=== PATIENT | female | born 1975 | race Caucasian/White ===

== ENCOUNTER 2017-09-16 06:34 | Emergency (ER) | payer MEDICARE, SELFPAY ==
[2017-09-16 06:37] VITALS: BP 144/88; PULSE 89; RESP 17; TEMP 36.8; O2SAT 96; BMI 33.3
--- NOTE | 2017-09-16 06:47 | ED.VISSUMM ---
- ER Visit Summary Date of Service: 09/16/17 Chief Complaint: [] Rash between breasts History of Present Illness: The patient is a 41 F patient has had a rest for the last 30 days that is getting better with nystatin cream and powder. She did do a week of Diflucan approximately 3 weeks ago as well. Is getting much better. She is requesting more Diflucan to help her get this resolved. She does not have a family doctor locally she recently moved. Physical Examination: [] Vital signs reviewed General: Well-nourished well-developed Head: Normocephalic atraumatic Eyes: Pupils equal round and reactive to light extraocular movements intact ENT: TMs clear no hemotympanum no trauma Neck: Nontender full range of motion Cardiovascular: Regular rate rhythm no murmurs normal S1-S2 Respiratory: No distress clear to auscultation bilaterally chest nontender Abdomen: Soft nontender nondistended normal bowel sounds no masses Back: Nontender no CVA tenderness Extremities: Nontender active range of motion ?4 extremities no trauma Skin: Mild yeast rash between the breast folds slowly. No yeast under the breasts. Neuro alert oriented cranial nerves II through XII intact normal strength sensation reflexes Test Results: [] Emergency Department Course and Treatment: [] Will be given a short course of Diflucan to supplement the statin. Will follow-up as an outpatient. At this time she is a yeast infection Treatment Plan: [] Disposition: [] Impression: [] Candidiasis skin infection This note was generated with [employer] dictation software. It may contain incorrect words, spelling, and punctuation that were not noted in review of the chart prior to signing ED Disposition - Plan for ED Patient: Chief Complaint: Rash Referrals: Care Physician,No Primary [Primary Care Provider] -
--- NOTE | 2017-09-16 06:48 | ED.DEP ---
ED Disposition - Plan for ED Patient: Disposition: Home or Assisted Living Chief Complaint: Rash Instructions: ED Candidiasis Cutaneous Prescriptions: Fluconazole [Diflucan] 50 mg PO BID #14 tab Referrals: Care Physician,No Primary [Primary Care Provider] - Mike Bob [[facility]] -
[2017-09-16 06:58] VITALS: RESP 16
== END 2017-09-16 06:59 | disposition home or self-care (01) ==
PROVIDERS: Emergency Provider Emergency Medicine
DX: B37.2 Candidiasis of skin and nail (principal); J45.909 Unspecified asthma, uncomplicated; Z79.899 Other long term (current) drug therapy
CPT/HCPCS: 99282

== ENCOUNTER 2017-09-24 17:47 | Emergency (ER) | payer MEDICARE, MEDICAID, SELFPAY ==
[2017-09-24 17:48] VITALS: BP 123/66; PULSE 78; RESP 16; TEMP 36.7; O2SAT 98; BMI 33.0
--- NOTE | 2017-09-24 19:15 | RAD_ITS ---
STUDY: X-RAY CHEST REASON FOR EXAM: Female, 41 years old. Asthma TECHNIQUE: Single frontal view COMPARISON: January 31, 2009 FINDINGS: The lungs are clear and expanded. There is no demonstrated pleural abnormality. Normal size heart. Normal mediastinum and carlee. Normal visualized pulmonary arteries. Normal visualized aortic arch and descending thoracic aorta. Normal visualized thoracic spine. Normal visualized ribs, clavicles, and shoulders. There is no demonstrated abnormality of the visualized soft tissue structures of the upper abdomen. RAD/Chest 1 View (Portable) IMPRESSION: Normal x-ray examination of the chest. Electronically Signed: Geoffrey Mercer DO at 19:57 EST Tel [phone], Service support ,
--- NOTE | 2017-09-24 19:16 | ED.DEP ---
ED Disposition - Plan for ED Patient: Chief Complaint: Asthma Instructions: ED Reactive Airway Disease Prescriptions: Prednisone [Deltasone] 40 mg PO DAILY #10 tablet Nystatin Powder [Mycostatin Powder] 1 applic TOPICAL TID #1 bottle Referrals: Care Physician,No Primary [Primary Care Provider] - Meme Manning MD [COURTESY STAFF PHYSICIAN] -
[2017-09-24 19:36] VITALS: PULSE 71; RESP 18
[2017-09-24] MEDS: Albuterol 2.5 MG/3 ML VIAL.NEB. INHALATION (19:36)
[2017-09-24 20:32] VITALS: RESP 16
--- NOTE | 2017-09-24 22:11 | ED.DCSUM_ITS ---
- ER Visit Summary Date of Service: 09/24/17 Chief Complaint: Shortness of breath, wheezing History of Present Illness: The patient is a 41 F presenting with shortness of breath, wheezing. She states this has been ongoing for the past week or so. She is here requesting a prednisone prescription. She has a history of asthma. She states she does not have a physician. She has inhalers at home. Her last steroid use was approximately 1 month ago. She denies fever or cough. She is a smoker. Denies other complaints. Physical Examination: Vitals are stable. Patient is afebrile. Alert no acute distress. HEENT exam is unremarkable. Neck is supple. Lungs are wheezing bilaterally. Heart is regular rate and rhythm. Abdomen is soft nontender nondistended. Extremities are unremarkable. Skin is warm and dry. No focal neurologic deficit. Remainder of exam is unremarkable. Emergency Department Course and Treatment: Patient was given albuterol aerosol. Lungs are improved on reevaluation. Chest x-ray shows no acute process. She is given a prescription for prednisone. She is given Dr. Manning product inspection coordinator for no doc for follow-up. Advised return to ED if worsening complaints. Disposition: Discharge home Impression: Asthma exacerbation This note was generated with [employer] dictation software. It may contain incorrect words, spelling, and punctuation that were not noted in review of the chart prior to signing ED Disposition - Plan for ED Patient: Disposition: Home or Assisted Living Chief Complaint: Asthma Instructions: ED Reactive Airway Disease Prescriptions: Prednisone [Deltasone] 40 mg PO DAILY #10 tablet Nystatin Powder [Mycostatin Powder] 1 applic TOPICAL TID #1 bottle Referrals: Meme Manning MD [COURTESY STAFF PHYSICIAN] - Care Physician,No Primary [Primary Care Provider] -
== END 2017-09-24 20:32 | disposition home or self-care (01) ==
LOC: ED 19:37
PROVIDERS: Emergency Provider Emergency Medicine
DX: J45.901 Unspecified asthma with (acute) exacerbation (principal); F17.200 Nicotine dependence, unspecified, uncomplicated
CPT/HCPCS: 71045; 94640; 99283

== ENCOUNTER 2017-11-16 05:25 | Emergency (ER) | payer MEDICARE, SELFPAY ==
[2017-11-16 05:26] VITALS: BP 134/83; PULSE 57; RESP 16; TEMP 36.2; O2SAT 96; BMI 34.2
--- NOTE | 2017-11-16 05:40 | ED.DCSUM_ITS ---
- ER Visit Summary Date of Service: 11/16/17 Chief Complaint: [Dental pain] History of Present Illness: The patient is a 42 F [presents to the emergency department complaint of dental pain ?2 months. Patient states that she had increased discomfort over the last couple of days. Patient has a history of periodontal disease. Patient does not see a dentist. Patient denies any fever. Patient denies any trauma to her teeth.] Physical Examination: [HEENT-PERRLA, EOMI. Cranial nerves II through XII grossly intact. TMs clear. Mucous membranes moist. No adenopathy. Patient has mild erythema to the left upper gingiva and tenderness diffusely over the left upper teeth. No focal abscess noted. No facial cellulitis noted. No trismus on exam. Cardiovascular-regular rate and rhythm without murmur or ectopy Lungs-clear to auscultation, chest wall stable without crepitus or subcu emphysema Abdomen-normoactive bowel sounds, soft, nontender, no rebound or rigidity, no peritoneal signs. Extremities-intact ?4, normal range of motion, normal pulses, atraumatic] Test Results: [None indicated] Emergency Department Course and Treatment: [Patient was started on clindamycin and will be given a small amount of tramadol for pain. Patient advised to follow-up with the dentist.] Treatment Plan: [Follow-up with dentist and will start on clindamycin and tramadol for pain.] Disposition: [Discharged to home in stable condition.] Impression: [Dental pain] This note was generated with [employer] dictation software. It may contain incorrect words, spelling, and punctuation that were not noted in review of the chart prior to signing ED Disposition - Plan for ED Patient: Chief Complaint: Dental Referrals: Care Physician,No Primary [Primary Care Provider] -
--- NOTE | 2017-11-16 05:40 | ED.DEP ---
ED Disposition - Plan for ED Patient: Chief Complaint: Dental Instructions: ED Tooth Pain Prescriptions: traMADol [Ultram] 50 mg PO Q4H PRN PRN #20 tab PRN Reason: Pain Clindamycin HCl [Cleocin] 300 mg PO Q6H #40 cap Referrals: Care Physician,No Primary [Primary Care Provider] - Additional Instructions: see a dentist
[2017-11-16] MEDS: traMADol 50 MG Tablet PO (05:44)
[2017-11-16] MEDS: Clindamycin HCl 150 MG Capsule 300 MG PO (05:44)
== END 2017-11-16 05:51 | disposition home or self-care (01) ==
LOC: ED 05:51
PROVIDERS: Emergency Provider Emergency Medicine; Family Provider Internal Medicine; PCP Internal Medicine
DX: K08.89 Other specified disorders of teeth and supporting structures (principal); G40.909 Epilepsy, unspecified, not intractable, without status epilepticus; J45.909 Unspecified asthma, uncomplicated; Z72.0 Tobacco use; Z79.899 Other long term (current) drug therapy; Z98.51 Tubal ligation status
CPT/HCPCS: 99283

== ENCOUNTER → 2017-12-23 13:42 | Outpatient (CLI) | payer MEDICARE, SELFPAY ==
[2017-12-23 13:59] LABS: Absolute Lymphocyte Count 3.43 X10^3/ul (0.83-4.51); Absolute Neutrophil Count 1.8 X10^3/uL (2.0-7.7); Basophil# 0.04 X10^3/uL; Basophil% 0.7 % (0-1); Eosinophil# 0.27 X10^3/uL; Eosinophils% 4.6 % (0-5); Hematocrit 40.3 % (37-47); Hemoglobin 13.1 g/dl (12.0-15.0); Lymphocyte # 3.43 X10^3/ul (4.0); Lymphocyte % 58.1 % (19-41); Mean Corp Hgb Conc 32.5 g/gl (32-36); Mean Corpuscular Hgb 27.6 pg (27.0-32.0); Mean Corpuscular Volume 84.8 fL (81-99); Mean Platelet Vol. 8.8 fl (6.2-12.0); Monocyte# 0.37 X10^3/uL; Monocyte% 6.3 % (0-10); Neutrophil # 1.79 X10^3/uL (2.7-7.7); Neutrophil % 30.3 % (47-70); Platelet Count 258 K/mm3 (150-450); RBC Distribution Width CV 13.2 % (11.6-14.6); RBC Distribution Width SD 40.7 fl (35.1-43.9); Red Blood Count 4.75 M/mm3 (4.2-5.4); White Blood Count 5.9 K/mm3 (4.4-11.0)
[2017-12-23 14:00] LABS: POSITIVE COUNT NO; POSITIVE DIFFERENTIAL NO; POSITIVE MORPHOLOGY NO
[2017-12-23 15:07] LABS: T4 Free Direct 0.79 ng/dL (0.76-1.46)
[2017-12-24 13:14] LABS: Vitamin B12 891 pg/mL (211-911); Vitamin D,25 Hydroxy 25.4 ng/mL (29.95-100.01)
== END ==
PROVIDERS: Family Provider Internal Medicine; PCP Internal Medicine; Visit Provider Nurse Practitioner Family
DX: R53.83 Other fatigue (principal); K06.9 Disorder of gingiva and edentulous alveolar ridge, unspecified; M79.7 Fibromyalgia; E55.9 Vitamin D deficiency, unspecified
CPT/HCPCS: 36415; 82306; 82607; 82746; 84439; 84443; 85025

== ENCOUNTER → 2018-03-08 11:54 | Outpatient (CLI) | payer MEDICARE, SELFPAY ==
--- NOTE | 2018-03-08 11:56 | US_ITS ---
STUDY: SUPERFICIAL ULTRASOUND - LEFT LOWER ABDOMINAL WALL REASON FOR EXAM: Female, 42 years old. Palpable lump TECHNIQUE: A superficial ultrasound was performed with real-time and static dale-scale imaging. COMPARISON: None. FINDINGS: Echogenic oval focus within the superficial subcutaneous fat of the abdominal wall at the region of interest. This focus measures approximately 1.06 x 0.96 x 1.3 cm and is most consistent with lipoma. US/Other Unlisted US Procedure IMPRESSION: Lump at the region of interest is most consistent with lipoma. Electronically Signed: Joni Perez, at 13:31 EDT Tel , Service support ,
== END ==
PROVIDERS: Family Provider Internal Medicine; PCP Internal Medicine; Visit Provider Nurse Practitioner Family
DX: R19.09 Other intra-abdominal and pelvic swelling, mass and lump (principal)
CPT/HCPCS: 76999

== ENCOUNTER → 2018-03-12 17:47 | Outpatient (CLI) | payer MEDICARE, SELFPAY ==
--- NOTE | 2018-03-12 | LIP_PTH ---
PATIENT: ALEJANDRA VELARDE LOC: [facility] U#:[id number] AGE/SX: 49/F ROOM: RE03/12/[address]: Dr. Edi Mi MD : 1975 BED: DIS: SPEC #: [id number] RECD: 03/13/18 17:15 STATUS: HAILE GUDELIA #: [id number] JEANETH: 03/12/18 00:[address]: Edi Mi DEPT: SURGICAL PATHOLOGY RECD BY: Dasha Boyd ENTERED: 03/13/18 09:53 SP TYPE: LIPOMA OTHR DR: Dr. Lindsey Ho MD Tissues: Soft tissues, NOS Procedures: Surgery Specimen Level III HEADER OPERATION: Excision of abdominal lipoma PRE-OP DIAGNOSIS: Abdominal lipoma TISSUE SUBMITTED: Lipomas of abdomen MICROSCOPIC DIAGNOSIS Abdominal cyst: Mature adipose tissue, consistent with lipoma with focal fat necrosis. SJ:christine 03/14/18 MICROSCOPIC DESCRIPTION Slides are reviewed. GROSS DESCRIPTION Received in fixative is one container labeled with the patient's name and designated abdominal cyst. The specimen consists of an ovoid fragment of yellow fatty tissue measuring 1.5 x 1 x 1 cm. The specimen is bisected and totally submitted in one cassette. / AM:rg 03/13/18 TC:1 CPT: 18155
== END ==
PROVIDERS: Family Provider Internal Medicine; PCP Internal Medicine; Visit Provider Surgery
DX: D17.1 Benign lipomatous neoplasm of skin and subcutaneous tissue of trunk (principal)
CPT/HCPCS: 88304

== ENCOUNTER 2018-10-19 06:03 | Emergency (ER) | payer MEDICARE, SELFPAY ==
[2018-10-16 14:28] VITALS: BMI 36.8
[2018-10-19 06:03] VITALS: BP 159/98; PULSE 60; RESP 18; TEMP 36.9; O2SAT 95; BMI 37.3
[2018-10-19 06:10] VITALS: O2SAT 94
[2018-10-19 06:18] VITALS: BP 160/88; PULSE 87; RESP 18; O2SAT 96
--- NOTE | 2018-10-19 06:19 | ED.VISSUMM ---
- ER Visit Summary Date of Service: 10/19/18 Chief Complaint: [Cough and shortness of breath] History of Present Illness: The patient is a 42 F [presents the emergency department with complaint of shortness of breath started about a week ago. Patient states that her asthma is flared up and she saw her primary care nurse practitioner who treated her with prednisone 40 mg for a couple of days she believes 4 days and just has not gotten all the way better. She did feel somewhat improved but normally she gets treated with a higher dose for a longer period of time. She had a little bit of a mild sore throat last week. She has had a minimal cough. She has not had any fever. Cough is nonproductive. She denies fever. She denies recent travel or surgery. She denies chest pain.] Physical Examination: [HEENT-PERRLA, EOMI. Cranial nerves II through XII grossly intact. TMs clear. Mucous membranes moist. No adenopathy. Cardiovascular-regular rate and rhythm without murmur or ectopy Lungs-clear to auscultation, chest wall stable without crepitus or subcu emphysema. Patient has a faint expiratory wheeze at end of expiration noted. No accessory muscle use or retractions. Abdomen-normoactive bowel sounds, soft, nontender, no rebound or rigidity, no peritoneal signs. Extremities-intact ?4, normal range of motion, normal pulses, atraumatic] Test Results: [I discussed possibly obtaining a chest x-ray however patient refused that she states that she is not feeling ill and does not believe she is sick and does not want to have a chest x-ray.] Emergency Department Course and Treatment: [Patient was given prednisone 60 mg p.o.] Treatment Plan: [Patient will be given a prescription for prednisone for 5 more days.] Disposition: [Discharged home in stable condition. Patient advised to return if increasing shortness of breath or condition should worsen anyway.] Impression: [Asthma exacerbation] This note was generated with [employer] dictation software. It may contain incorrect words, spelling, and punctuation that were not noted in review of the chart prior to signing ED Disposition - Plan for ED Patient: Referrals: Lindsey Ho MD [Primary Care Provider] -
--- NOTE | 2018-10-19 06:21 | ED.DEP ---
ED Disposition - Plan for ED Patient: Instructions: ED Reactive Airway Disease Prescriptions: Prednisone [Deltasone] 60 mg PO DAILY #15 tab Referrals: Lindsey Ho MD [Primary Care Provider] - 3-5 Days
[2018-10-19] MEDS: predniSONE 20 MG Tablet 60 MG PO (06:32)
== END 2018-10-19 06:33 | disposition home or self-care (01) ==
LOC: ED 06:32
PROVIDERS: Emergency Provider Emergency Medicine; Family Provider Internal Medicine; PCP Internal Medicine
DX: J45.901 Unspecified asthma with (acute) exacerbation (principal); I10 Essential (primary) hypertension; F32.9 Major depressive disorder, single episode, unspecified; F41.9 Anxiety disorder, unspecified; Z79.1 Long term (current) use of non-steroidal anti-inflammatories (NSAID); Z79.52 Long term (current) use of systemic steroids; Z79.899 Other long term (current) drug therapy; Z86.19 Personal history of other infectious and parasitic diseases; Z87.891 Personal history of nicotine dependence
CPT/HCPCS: 99282

== ENCOUNTER → 2018-11-12 15:48 | Outpatient (CLI) | payer MEDICARE, SELFPAY ==
[2018-10-19 06:03] VITALS: BMI 37.3
[2018-11-12 19:31] LABS: Absolute Lymphocyte Count 2.68 X10^3/ul (0.83-4.51); Absolute Neutrophil Count 0.8 X10^3/uL (2.0-7.7); Basophil# 0.04 X10^3/uL; Basophil% 0.9 % (0-1); Eosinophil# 0.41 X10^3/uL; Eosinophils% 9.1 % (0-5); Hematocrit 41.3 % (37-47); Hemoglobin 13.7 g/dl (12.0-15.0); Lymphocyte # 2.68 X10^3/ul (4.0); Lymphocyte % 59.3 % (19-41); Mean Corp Hgb Conc 33.2 g/gl (32-36); Mean Corpuscular Volume 87.5 fL (81-99); Mean Platelet Vol. 11.5 fl (6.2-12.0); Monocyte# 0.55 X10^3/uL; Monocyte% 12.2 % (0-10); Neutrophil # 0.83 X10^3/uL (2.7-7.7); Neutrophil % 18.3 % (47-70); Platelet Count 271 K/mm3 (150-450); RBC Distribution Width CV 13.1 % (11.6-14.6); RBC Distribution Width SD 41.2 fl (35.1-43.9); Red Blood Count 4.72 M/mm3 (4.2-5.4); White Blood Count 4.5 K/mm3 (4.4-11.0)
[2018-11-12 19:35] LABS: Differential Indicated SCAN CRITERIA MET; POSITIVE COUNT NO; POSITIVE DIFFERENTIAL YES; POSITIVE MORPHOLOGY NO
[2018-11-12 20:26] LABS: Platelet Estimate ADEQUATE (ADEQ); Red Cell Morphology NORM C+C NORMAL (NORM C&C)
== END ==
PROVIDERS: Family Provider Internal Medicine; PCP Internal Medicine; Referring Provider Nurse Practitioner Family; Visit Provider Nurse Practitioner Family
DX: J45.909 Unspecified asthma, uncomplicated (principal)
CPT/HCPCS: 36415; 85025

== ENCOUNTER → 2019-05-09 15:59 | Outpatient (CLI) | payer MEDICARE, SELFPAY ==
[2019-05-09 14:05] VITALS: BMI 34.4
[2019-05-09 16:40] LABS: White Blood Cells 0 SEEN /hpf (0-5)
[2019-05-09 17:08] LABS: Color, Urine Yellow (Yellow); Glucose, Dipstick Normal (Normal); Ketone-Dipstick Negative (Negative); Leukocyte Esterase-Dipstick Negative /ul (Negative); Nitrite-Dipstick Negative (Negative); Occult Blood-Urine Negative /ul (Negative); Protein-Dipstick 15 mg/dl (Negative); Specific Gravity, Urine 1.015 (1.002-1.030); Urine Bilirubin Dipstick Negative (Negative); Urine Clarity Clear (Clear); Urine Urobilinogen 4 mg/dl (Normal); Urine pH 6.5 (5.0 - 8.0)
[2019-05-09 17:35] LABS: Bacteria 2+ /hpf (None Seen); Mucous, Urine 1+ /hpf (<or=2+); Red Blood Cells-Urine 0-5 SEEN /hpf (0-5); Squamous Epithelial Cells - UA 0-5 SEEN /hpf (5-10)
== END ==
PROVIDERS: Family Provider Internal Medicine; PCP Internal Medicine; Referring Provider Nurse Practitioner Family; Visit Provider Nurse Practitioner Family
DX: R30.0 Dysuria (principal)
CPT/HCPCS: 81001; 87086

== ENCOUNTER 2019-11-17 09:52 | Emergency (ER) | payer MEDICARE, MEDICAID, SELFPAY ==
[2019-11-03 13:53] VITALS: BMI 34.4
[2019-11-17 09:53] VITALS: BP 143/79; PULSE 70; RESP 22; TEMP 36.9; O2SAT 93; BMI 33.0
--- NOTE | 2019-11-17 10:06 | RAD_ITS ---
STUDY: X-RAY CHEST REASON FOR EXAM: Female, 44 years old. HX ASTHMA TECHNIQUE: Single AP portable view of the chest. COMPARISON: Comparison is made with prior examination dated September 24, 2017. FINDINGS: There now is evidence of bilateral patchy infiltrates worse in the right lung base. Blunting of the left costophrenic angle. Normal size heart. Normal mediastinum and carlee. Normal visualized pulmonary arteries. Normal visualized aortic arch and descending thoracic aorta. There are degenerative changes of the visualized thoracic spine. Normal visualized ribs, clavicles, and shoulders. There is no demonstrated abnormality of the visualized soft tissue structures of the upper abdomen. RAD/Chest 1 View (Portable) IMPRESSION: Patchy bilateral pulmonary infiltrates worse in the right hemithorax. Follow-up is recommended. Electronically Signed: Morgan Kim, at 10:35 EDT , Service support ,
--- NOTE | 2019-11-17 10:07 | ED.DCSUM_ITS ---
History of Present Illness Chief Complaint: Asthma Informant: Patient Onset: Today Narrative: Patient states that 3 weeks ago she mixed some chemicals while cleaning her toilet. Since then she states that she has been short of breath. She has been taking prednisone she tells me every day for 3 weeks. She states that she is extremely anxious. She states she took 7 albuterol treatments this morning. She has visited with her doctor with a virtual appointment and I reviewed that note. She states nobody will help her. See that she received Ativan on November 02 2 tablets and November 05 2 tablets. Patient's previous mental health and social history was reviewed. Past Medical History - Allergies and Home Meds Allergies/Adverse Reactions: Allergies ipratropium bromide [From Atrovent] Allergy (Verified 11/17/19 09:53) Unknown shellfish derived Allergy (Verified 11/17/19 09:53) Unknown Primary Care Physician: Lindsey Ho MD [Primary Care Provider] - Smoking Status: Former smoker Review of Systems General: Denies: Chills, Fever, Sweats Eyes: Denies: Visual changes - bilaterally, Diplopia ENT: Denies: Rhinorrhea, Sore throat Cardiovascular: Denies: Chest pain, Palpitations Respiratory: Reports: Dyspnea. Denies: Cough, Sputum, Dyspnea on exertion Gastrointestinal: Denies: Abdominal pain, Nausea, Vomiting, Diarrhea, Melena, Hematochezia Genitourinary: Denies: Dysuria, Hematuria, Frequency Musculoskeletal: Denies: Back pain, Extremity Pain Skin: Denies: Rash, Wounds Neurological: Denies: Headache, Weakness, Numbness Psych: Reports: Anxiety. Denies: Suicidal thoughts, Suicidal ideations Physical Exam Vital Signs/Narrative: Vital Signs Temp Pulse Resp BP Pulse Ox 11/17/19 09:53 98.4 F 70 22 H 143/79 H 93 Inital Vital Signs reviewed: Yes General: Well nourished, Well developed, No Acute Distress Head: Normocephalic, Atraumatic Eyes: Perrl, EOMI ENT: Moist mucous membranes, No rhinorrhea Neck: Supple, Nontender Cardiovascular: Regular rate, Regular rhythm, No murmurs Respiratory: No distress, CTA bilaterally, Chest nontender, - - Patient is able to speak in full sentences. She has good aeration. Her expiratory wheezes resolved when I have her breathe with pursed lips. Abdomen: Soft, Nontender, Nondistended, Normal bowel sounds Back: Nontender, Normal Inspection Extremities: Nontender, No edema Skin: Normal color, No rash Neurological: Alert, Oriented x3, Cranial nerves II-XII grossly intact, Normal Strength, Normal Sensation Psychological: - - And is extremely anxious appearing. She is tearful. She has pressured speech. No suicidal or homicidal ideation. Diagnostic/Tx/Re-eval - Medical Decision Making Patient received a milligram of Ativan p.o. Her chest x-ray is concerning for bilateral infiltrates and given the current COVID 19 endemic is the most likely cause. The patient was updated. ED Disposition - Plan for ED Patient: Disposition: Home or Assisted Living Diagnosis: Bilateral pneumonia, Suspected COVID-19 virus infection Prescriptions: Lorazepam [Ativan] 0.5 mg PO TID #12 tablet Transmission Status: Sent to [facility] Amox/Clavulanate Tablet [Augmentin Tablet] 875 mg PO Q12H #20 tab Transmission Status: Pending to [facility] Azithromycin 500 mg PO DAILY 5 Days #5 tab Transmission Status: Pending to [facility] Albuterol Aerosols [Ventolin Aerosols] 2.5 mg INHALATION Q4H PRN #25 vial Transmission Status: Pending to [facility] Referrals: Lindsey Ho MD [Primary Care Provider] -
[2019-11-17] MEDS: LORazepam 1 MG Tablet PO (10:14)
[2019-11-17 10:20] VITALS: BP 143/79; PULSE 70; RESP 22; TEMP 36.9; O2SAT 93; O2SAT 98
[2019-11-17 11:05] LABS: Absolute Lymphocyte Count 2.93 X10^3/uL (0.83-4.51); Absolute Neutrophil Count 6.8 X10^3/uL (2.0-7.7); Basophil# 0.09 X10^3/uL; Basophil% 0.7 % (0-1); Eosinophils% 13.1 % (0-5); Hematocrit 38.4 % (37-47); Hemoglobin 12.5 g/dL (12.0-15.0); Lymphocyte # 2.93 X10^3/ul (4.0); Mean Corp Hgb Conc 32.6 g/dL (32-36); Mean Corpuscular Hgb 28.5 pg (27.0-32.0); Mean Corpuscular Volume 87.7 fL (81-99); Mean Platelet Vol. 8.8 fl (6.2-12.0); Monocyte# 0.72 X10^3/uL; Monocyte% 5.9 % (0-10); NRBC Flagged by Analyzer 0 % (0-5); Neutrophil % 55.9 % (47-70); Platelet Count 404 K/mm3 (150-450); RBC Distribution Width CV 13.6 % (11.6-14.6); RBC Distribution Width SD 43.7 fl (35.1-43.9); Red Blood Count 4.38 M/mm3 (4.2-5.4); White Blood Count 12.2 K/mm3 (4.4-11.0)
[2019-11-17 11:19] LABS: ALB/GLOB Ratio 0.7 RATIO (0.9-2.4); AST(SGOT) 44 U/L (15-37); Alanine Aminotransfer ALT/SGPT 34 U/L (13-56); Albumin, Serum 2.9 g/dL (3.2-5.0); Alkaline Phosphatase 137 U/L (45-117); Anion Gap 5 (5-15); BUN 6 mg/dL (7-18); BUN/Creat Ratio 8.3 RATIO (10-20); Calcium,Total 8.7 mg/dL (8.5-10.1); Chloride 104 mmol/L (98-107); Creatinine, Serum 0.72 mg/dL (0.55-1.02); EST Glomerular Filtration Rate 94 mL/min (>60); Est Glom Filt Rate - Afr Amer 113 mL/min (>60); Estimated Creatinine Clearance 91.59 ml/min; Glucose 87 mg/dL (74-106); Potassium 3.2 mmol/L (3.5-5.1); Protein, Total 6.9 g/dL (6.4-8.2); Sodium Level 142 mmol/L (136-145)
[2019-11-17 11:46] VITALS: BP 142/78; PULSE 76; RESP 22; O2SAT 98
--- NOTE | 2019-11-17 11:46 | ED.RN ---
THIS NURSE REVIEWED D/C INSTRUCTIONS WITH PT. PT VERBALIZED UNDERSTANDING OF INSTRUCTIONS. IV D/C. IV CATHETER INTACT. PT TOLERATED WELL. PT DENIES FURTHER NEEDS OR QUESTIONS AT THIS TIME
== END 2019-11-17 12:07 | disposition home or self-care (01) ==
PROVIDERS: Emergency Provider Emergency Medicine; PCP Internal Medicine
DX: J18.9 Pneumonia, unspecified organism (principal); J45.909 Unspecified asthma, uncomplicated; Z79.899 Other long term (current) drug therapy; Z87.891 Personal history of nicotine dependence
CPT/HCPCS: 71045; 80053; 85025; 87635; 99283; A4216; U0004

== ENCOUNTER 2020-03-04 08:54 | Emergency (ER) | payer MEDICARE, SELFPAY ==
[2019-11-19 12:54] VITALS: BMI 33.0
[2020-03-04] VITALS (7 sets, daily range): BP systolic 123–171; BP diastolic 78–105; PULSE 40–59; RESP 16–24; TEMP 36–36.7; O2SAT 96–99; BMI 30.7
--- NOTE | 2020-03-04 09:06 | EKG12_ITS ---
Test Reason : Blood Pressure : / mmHG Vent. Rate : 038 BPM Atrial Rate : 038 BPM P-R Int : 174 ms QRS Dur : 094 ms QT Int : 570 ms P-R-T Axes : 031 067 067 degrees QTc Int : 453 ms Marked sinus bradycardia Abnormal ECG Confirmed by ALEK ALATORRE, MISTI ([id number]), medical transcription editor RUY HARRY ([id number]) on 03/08/2020 9:33:33 AM Referred By: MITCHELL/MARGARET Confirmed By:JU GASTON MD
--- NOTE | 2020-03-04 09:06 | CT_ITS ---
STUDY: CT BRAIN WITHOUT CONTRAST REASON FOR EXAM: Female, 44 years old. CHANGE IN MENTAL STATUS, DRUG ABUSE-WITHDRAWAL, HEP C, MOOD DISORDER, ,NEG COVID RADIATION DOSAGE (If Supplied By Facility): CTDIvol = ( 44.99 ) mGy, DLP = ( 1558.47 ) mGycm TECHNIQUE: Transaxial CT imaging of the brain was performed without administration of intravenous contrast material. Individualized dose optimization techniques were used for this CT. COMPARISON: No relevant priors. FINDINGS: Normal soft tissue structures. Normal calvarium. Normal size ventricles and extra-axial spaces for the patient''s age. Normal white matter tracts of the cerebral hemispheres. Normal basal ganglia and thalami. Normal brainstem. Normal cerebellum. There is no intracranial hemorrhage. There are no findings of an acute ischemic infarction. Normal visualized paranasal sinuses. CT/Brain/Head without Contrast IMPRESSION: Normal unenhanced CT scan of the brain. Electronically Signed: Morgan Kim, at 10:03 EDT , Service support ,
--- NOTE | 2020-03-04 09:07 | ED.DCSUM_ITS ---
History of Present Illness Chief Complaint: Anxiety Informant: Patient, Family Onset: Days Context: Gradual Onset Timing: Intermittent Current Severity: Moderate Maximum Severity: Severe Narrative: Patient is a 44-year-old female with medical history significant for mood disorder and personality disorder that presents to the emergency department for auditory hallucinations. Patient states that about 3 days ago, she took what she thought was Xanax. She states that she does get it from a friend and she was trying to deal with her anxiety. She states shortly after taking it, she began to feel nauseated. For the past 2 nights, she has been having auditory hallucinations. She states that she felt like there is been people outside of her house being on her windows. She states she is never had hallucinations before. She denies being suicidal or homicidal. She states she just generally feels unwell. She was recently started on Seroquel about 2 weeks ago. She is also on Suboxone. Prior similar symptoms: No Recent Illness/Hospitalization: No Past Medical History - Allergies and Home Meds Allergies/Adverse Reactions: Allergies ipratropium bromide [From Atrovent] Allergy (Verified 11/17/19 09:53) Unknown shellfish derived Allergy (Verified 11/17/19 09:53) Unknown Primary Care Physician: Lindsey Ho MD [STAFF PHYSICIAN] - Prior records reviewed: Yes Past Medical History: - - Personality disorder, mood disorder, COPD Surgical History: noncontributory Smoking Status: Former smoker Review of Systems General: Reports: Malaise. Denies: Chills, Fever, Sweats Eyes: Denies: Visual changes - bilaterally, Diplopia ENT: Denies: Rhinorrhea, Sore throat Cardiovascular: Denies: Chest pain, Palpitations Respiratory: Denies: Dyspnea, Cough, Dyspnea on exertion Gastrointestinal: Reports: Nausea, Vomiting. Denies: Abdominal pain, Diarrhea, Melena, Hematochezia Genitourinary: Denies: Dysuria, Hematuria, Frequency Musculoskeletal: Denies: Back pain, Extremity Pain Skin: Denies: Rash, Wounds Neurological: Denies: Headache, Weakness, Numbness Psych: Reports: Anxiety Physical Exam Vital Signs/Narrative: Vital Signs Temp Pulse Resp BP Pulse Ox 03/04/20 08:55 96.8 F L 40 L 16 158/95 H 96 Inital Vital Signs reviewed: Yes General: Well nourished, Well developed, No Acute Distress Head: Normocephalic, Atraumatic Eyes: Perrl, EOMI ENT: Moist mucous membranes, No rhinorrhea Neck: Supple, Nontender Cardiovascular: Regular rate, Regular rhythm, No murmurs Respiratory: No distress, CTA bilaterally, Chest nontender Abdomen: Soft, Nontender, Nondistended, Normal bowel sounds Back: Nontender, Normal Inspection Extremities: Nontender, No edema Skin: Normal color, No rash Neurological: Alert, Oriented x3, Cranial nerves II-XII grossly intact, Normal Strength, Normal Sensation Psychological: Normal affect, Normal Mood Diagnostic/Tx/Re-eval Clinical Impression(s) from Imaging Studies Brain CT 03/04/20 09:06 IMPRESSION: Normal unenhanced CT scan of the brain. Electronically Signed: Morgan Kim, at 10:03 EDT , Service support , Abnormal Lab Results 03/04/20 03/04/20 03/04/20 09:30 09:30 09:30 WBC 9.7 RBC 4.87 Hgb 13.5 Hct 40.9 MCV 84.0 MCH 27.7 MCHC 33.0 RDW Std Deviation 43.1 RDW Coeff of Renetta 14.1 Plt Count 309 MPV 9.3 Immature Gran % (Auto) 0.300 Neut % (Auto) 68.1 Lymph % (Auto) 27.3 [place] % (Auto) 3.2 Eos % (Auto) 0.4 Baso % (Auto) 0.7 Absolute Neuts (auto) 6.6 Absolute Lymphs (auto) 2.65 Nucleated RBC % 0 Sodium 136 Potassium 4.3 Chloride 104 Carbon Dioxide 28.0 Anion Gap 4 L BUN 11 Creatinine 0.86 Estim Creat Clear Calc 76.68 Est GFR (MDRD) Af Amer 93 Est GFR (MDRD) Non-Af 77 BUN/Creatinine Ratio 12.7 Glucose 153 H Calcium 8.9 Total Bilirubin 0.50 AST 74 H ALT 95 H Alkaline Phosphatase 147 H Total Protein 8.2 Albumin 3.6 Globulin 4.6 H Albumin/Globulin Ratio 0.8 L Serum , Qual Urine Color Urine Clarity Urine pH Ur Specific [place] Urine Protein Urine Glucose (UA) Urine Ketones Urine Occult Blood Urine Nitrite Urine Bilirubin Urine Urobilinogen Ur Leukocyte Esterase Urine RBC Urine WBC Ur Squamous Epith Cells Urine Bacteria Urine Mucus Urine Opiates Screen Urine Methadone Screen Ur Barbiturates Screen Ur Phencyclidine Scrn Ur Amphetamines Screen U Methamphetamin-MDMA U Benzodiazepines Scrn Urine Cocaine Screen U Cannabinoids Screen Ur Drug Screen Comment Ethyl Alcohol < 3.0 03/04/20 03/04/20 03/04/20 09:30 11:48 11:48 WBC RBC Hgb Hct MCV MCH MCHC RDW Std Deviation RDW Coeff of Renetta Plt Count MPV Immature Gran % (Auto) Neut % (Auto) Lymph % (Auto) [place] % (Auto) Eos % (Auto) Baso % (Auto) Absolute Neuts (auto) Absolute Lymphs (auto) Nucleated RBC % Sodium Potassium Chloride Carbon Dioxide Anion Gap BUN Creatinine Estim Creat Clear Calc Est GFR (MDRD) Af Amer Est GFR (MDRD) Non-Af BUN/Creatinine Ratio Glucose Calcium Total Bilirubin AST ALT Alkaline Phosphatase Total Protein Albumin Globulin Albumin/Globulin Ratio Serum , Qual NEGATIVE Urine Color Yellow Urine Clarity Sl. Cloudy Urine pH 7.0 Ur Specific [place] 1.010 Urine Protein Negative Urine Glucose (UA) Normal Urine Ketones Negative Urine Occult Blood Negative Urine Nitrite Negative Urine Bilirubin Negative Urine Urobilinogen Normal Ur Leukocyte Esterase Negative Urine RBC 0 SEEN Urine WBC 0 SEEN Ur Squamous Epith Cells 0-5 SEEN Urine Bacteria 0 SEEN Urine Mucus 0 SEEN Urine Opiates Screen NEGATIVE Urine Methadone Screen NEGATIVE Ur Barbiturates Screen NEGATIVE Ur Phencyclidine Scrn NEGATIVE Ur Amphetamines Screen NEGATIVE U Methamphetamin-MDMA NEGATIVE U Benzodiazepines Scrn NEGATIVE Urine Cocaine Screen NEGATIVE U Cannabinoids Screen POSITIVE H Ur Drug Screen Comment Ethyl Alcohol - Rhythm Strip Rhythm Strip: Sinus Rhythm Rate: 50 Ectopy: None - EKG Initial EKG Interpretation: Sinus Bradycardia Prior: Unchanged - Medical Decision Making The patient presents with auditory and visual hallucinations. She does have underlying history of psychiatric disease. She was noted to be bradycardic by triage, but was not hypotensive. EKG was obtained. It showed sinus bradycardia with normal axis and intervals. Patient was recently started on propanolol and Seroquel. I do feel this is likely the cause of her bradycardia. She is totally asymptomatic from a cardiac standpoint. She is not hypotensive. I did obtain broad metabolic work-up given her hallucinations. Head CT was obtained was unremarkable. Screening labs are also relatively unremarkable. Her tox is positive for THC, but no opioids or methamphetamines. The patient is continually internally stimulated with active hallucinations. She is given Geodon. The patient was evaluated by social work. The plan will be to have the patient hospitalized with inpatient psychiatry. At this point, she is medically cleared for inpatient hospitalization. Impression 1. Acute psychosis ED Disposition - Plan for ED Patient: Referrals: Lindsey Ho MD [STAFF PHYSICIAN] -
[2020-03-04 09:45] LABS: Absolute Lymphocyte Count 2.65 X10^3/uL (0.83-4.51); Absolute Neutrophil Count 6.6 X10^3/uL (2.0-7.7); Basophil# 0.07 X10^3/uL; Basophil% 0.7 % (0-1); Eosinophil# 0.04 X10^3/uL; Eosinophils% 0.4 % (0-5); Hematocrit 40.9 % (37-47); Hemoglobin 13.5 g/dL (12.0-15.0); Lymphocyte # 2.65 X10^3/ul (4.0); Lymphocyte % 27.3 % (19-41); Mean Corpuscular Hgb 27.7 pg (27.0-32.0); Mean Platelet Vol. 9.3 fl (6.2-12.0); Monocyte# 0.31 X10^3/uL; Monocyte% 3.2 % (0-10); NRBC Flagged by Analyzer 0 % (0-5); Neutrophil # 6.59 X10^3/uL (2.7-7.7); Neutrophil % 68.1 % (47-70); Platelet Count 309 K/mm3 (150-450); RBC Distribution Width CV 14.1 % (11.6-14.6); RBC Distribution Width SD 43.1 fl (35.1-43.9); Red Blood Count 4.87 M/mm3 (4.2-5.4); White Blood Count 9.7 K/mm3 (4.4-11.0)
[2020-03-04 09:52] LABS: Alcohol, Blood (Medical)-Serum < 3.0 mg/dL
[2020-03-04 09:53] LABS: ALB/GLOB Ratio 0.8 RATIO (0.9-2.4); AST(SGOT) 74 U/L (15-37); Alanine Aminotransfer ALT/SGPT 95 U/L (13-56); Albumin, Serum 3.6 g/dL (3.2-5.0); Alkaline Phosphatase 147 U/L (45-117); Anion Gap 4 (5-15); BUN 11 mg/dL (7-18); BUN/Creat Ratio 12.7 RATIO (10-20); Calcium,Total 8.9 mg/dL (8.5-10.1); Chloride 104 mmol/L (98-107); Creatinine, Serum 0.86 mg/dL (0.55-1.02); EST Glomerular Filtration Rate 77 mL/min (>60); Est Glom Filt Rate - Afr Amer 93 mL/min (>60); Estimated Creatinine Clearance 76.68 ml/min; Globulin 4.6 g/dL (2.2-4.2); Glucose 153 mg/dL (74-106); Potassium 4.3 mmol/L (3.5-5.1); Protein, Total 8.2 g/dL (6.4-8.2); Sodium Level 136 mmol/L (136-145)
[2020-03-04] MEDS: 0.9% Normal Saline 1,000 ML 999 ML IV (10:13)
[2020-03-04 10:19] LABS: Internal QC Validated? YES +Cl - CLEAR BKGD; Pregnancy, Serum, hCG Quali. NEGATIVE Negative
[2020-03-04] MEDS: proMETHazine 25 MG/ML Syringe 6.25 MG IV (10:22)
--- NOTE | 2020-03-04 10:54 | CM.ED ---
Social Work Consult: Mental Health Informant: Dr. Sosa Chief Complaint: Patient states she keeps yelling at me, don't you hear her. Patient states that neighbor number 1 has been yelling at patient since yesterday. Marital/Social History: Single. Living Situation: Patient initially states I can't tell you that, they will try to kill me. Patient later refers to patient boyfriend staying with patient. This clinical social worker attempted to clarify if patient boyfriend lives with patient and patient states no but patient mother shakes head yes and later states that patient does live with patient boyfriend, Peter Storm. Support/Resources: Active in counseling services in [place]. Patient is not sure of counseling agency name. Patient states to see a doctor and a counselor. Patient identifies patient mother, Charley as a support. Charley can be reached at: [phone]. History: None Education/Employment History: Disability since the age of 21 due to Asthma. Patient denies any issues with comprehension or understanding on a regular basis but states to currently be foggy. Mental Health Treatment/History: Mood disorder, Personality Disorder. Patient states to be prescribed Seroquel and Celexa and to be compliant with medications. Patient states history of inpatient psychiatric placement years ago. Patient believes to have been in [facility]. Triggers/Stressors: her yelling at me. Coping Skills: Playing with kitten, Gardening. Abuse Issues: None. Substance Abuse hx: Reports history of substance abuse but to have been on Suboxone for the past 6 years. Patient states to have been using Xanax Bars for a few weeks now. Patient states when patient was using to have abuse pain medication. Risk to Self/Others: Patient denies active suicidal thoughts but then states I might be. Patient states to not be sure what patient is thinking. Patient states that she tells me to kill myself. Patient states she said she would shoot me. Patient denies any thoughts/plans to harm others. Patient denies any self-harm. Patient states history of suicide attempts years ago. Mental Status Exam: A&Ox3 Appearance/General Behavior: Disheveled. Mood/Affect: Bizarre. Elevated. Anxious. Communication Pattern: Responds to questions. Incoherent at times. Thought Process: Flight of ideas. Patient denies visual or auditory hallucinations but patient mother states that patient is hallucinating. Patient states you don't hear her and referring to someone that is not in the room. Patient states that she says, I want pills, I want my money. Patient later acknowledging that patient is hallucinating. Patient state I need help. Judgement: Poor. Assessment: Met with patient and patient motherCharley in room. Introduced self and clinical social worker role. Patient agreeable to speaking with this clinical social worker. Patient wanting patient mother to stay in the room during assessment. Patient with flight of ideas and difficult to follow at times. Patient with bizarre statements such as Clean the toilet out, not sure what I should mix and then would laugh. Patient cooperative and pleasant to speak to but disorganized in conversation pattern. Patient states that men were trying to get in and that hospital staff stopped them. This clinical social worker confirming with hospital staff that there was no men trying to get in to see patient. Patient states this girl is my friend. Patient states that patient boyfriend has been concerned about patient and things I am crazy. Patient states maybe I am. Patient states that the women has been yelling and screaming at patient since yesterday and patient has not been able to sleeping. Patient states to this clinical social worker help please. Active support and listening provided. Collaborating with Dr. Sosa. Recommending inpatient psychiatric placement for stabilization. PLAN: Facilitate placement. ALFREDO Young
[2020-03-04 12:02] LABS: Bacteria 0 SEEN /hpf (None Seen); Mucous, Urine 0 SEEN /hpf (<or=2+); Red Blood Cells-Urine 0 SEEN /hpf (0-5); White Blood Cells 0 SEEN /hpf (0-5)
[2020-03-04 12:12] LABS: Color, Urine Yellow (Yellow); Glucose, Dipstick Normal (Normal); Ketone-Dipstick Negative (Negative); Leukocyte Esterase-Dipstick Negative /ul (Negative); Nitrite-Dipstick Negative (Negative); Occult Blood-Urine Negative /ul (Negative); Protein-Dipstick Negative (Negative); Urine Bilirubin Dipstick Negative (Negative); Urine Clarity Sl. Cloudy (Clear); Urine Urobilinogen Normal (Normal)
[2020-03-04 12:21] LABS: Squamous Epithelial Cells - UA 0-5 SEEN /hpf (5-10)
[2020-03-04 12:25] LABS: Amphetamine Urine VISTA NEGATIVE (<1000 ng/mL); Barbiturate Urine VISTA NEGATIVE (< 200 ng/mL); Benzodiazepine Urine VISTA NEGATIVE (< 200 ng/mL); Cocaine Urine VISTA NEGATIVE (< 300 ng/mL); Ecstacy Urine VISTA NEGATIVE (< 500 ng/mL); Methadone Urine VISTA NEGATIVE (< 300 ng/mL); PCP Urine VISTA NEGATIVE (< 25 ng/mL); THC Urine VISTA POSITIVE (< 50 ng/mL); Vista UDS pH Range 7
--- NOTE | 2020-03-04 13:00 | CM.ED ---
Social Work Telephone call to [facility]. Referral placed. Clinical information faxed. Pending review. Chaim Devi MSW, ALFREDO
[2020-03-04] MEDS: LORazepam 2 MG/ML Syringe IM ×2 (13:08→19:45)
--- NOTE | 2020-03-04 15:35 | CM.ED ---
Social Work Telephone call from [facility]. Patient has been declined. Telephone call to [facility], intake. Referral made. Clinical information faxed. Pending review. Chaim MORENO, ALFREDO
--- NOTE | 2020-03-04 15:37 | ED.RN ---
pt intermittently screaming and yelling about meth heads and killers. pt then becomes quiet and apologizes. pt then screams again about and being killed. mother has gone home
--- NOTE | 2020-03-04 16:41 | ED.RN ---
upon entering room to take vital signs, pt states i'm going to drink the blue stuff. referring to the virex. removed from room. pt cooperative with vital signs but will not allow monitor to stay on
--- NOTE | 2020-03-04 17:41 | CM.ED ---
Social Work Telephone call from [facility]. Patient has been accepted. Patient to admit to [address] [place] [address]. Admitting doctor is Dr. Lindquist. Nurse to call report to: [phone]. Updated medical team and patient. [place] faxed. Chaim Devi MSW, ALFREDO
--- NOTE | 2020-03-04 18:02 | ED.RN ---
CALLED FOR TRANSPORT WITH PHYSICIANS; ETA 2-3 HOURS, SPOKE WITH EPHRAIM WHO STATED SHE WAS GOING TO TRY TO FIND SOMEONE THAT CAN COME QUICKER
[2020-03-04] MEDS: DiphenhydrAMINE 50 MG/ML Syringe IM (18:38)
[2020-03-04] MEDS: Haloperidol Lactate 5 MG/ML Vial 2 MG IM (18:38)
--- NOTE | 2020-03-04 19:26 | CM.ED ---
Social Work Telephone call to patient motherCharley to update on patient transfer. Charley thanking this marriage and family social worker. Chaim MORENO, ALFREDO
== END 2020-03-04 20:48 ==
PROVIDERS: Emergency Provider Emergency Medicine; PCP Internal Medicine
DX: F23 Brief psychotic disorder (principal); F39 Unspecified mood [affective] disorder; F60.9 Personality disorder, unspecified; F41.9 Anxiety disorder, unspecified; R00.1 Bradycardia, unspecified; J44.9 Chronic obstructive pulmonary disease, unspecified; Z79.899 Other long term (current) drug therapy; Z87.891 Personal history of nicotine dependence
CPT/HCPCS: 70450; 80053; 80307; 80320; 81001; 84703; 85025; 93005; 96361; 96372; 96374; 99283; G0480; J3486

== ENCOUNTER 2020-10-19 20:30 | Emergency (ER) | payer MEDICARE, MEDICAID, SELFPAY ==
[2020-03-04 08:55] VITALS: BMI 30.7
[2020-10-19 20:32] VITALS: BP 98/48; PULSE 89; RESP 16; TEMP 36; O2SAT 96; BMI 36.6
--- NOTE | 2020-10-19 20:56 | RAD_ITS ---
STUDY: X-RAY - LEFT WRIST REASON FOR EXAM: Female, 44 years old. Pain beginning at the wrist radiating up into the hand for one week. Burning sensation which began yesterday. TECHNIQUE: 3 view(s) of the wrist were obtained. COMPARISON: Left hand, 10/19/2020. FINDINGS: Normal visualized distal radius and ulna. Normal radiocarpal articulation. Normal distal radioulnar articulation. Normal carpal bones. Normal carpal articulations. Normal carpometacarpal articulation of the thumb. Normal second through fifth carpometacarpal articulations. Normal visualized metacarpal bones. The soft tissue structures are unremarkable. RAD/Wrist min 3 Views IMPRESSION: No acute fracture or dislocation. Electronically Signed: Jermaine Ivy DO at 21:27 EDT Tel [phone], Service support ,
--- NOTE | 2020-10-19 21:05 | RAD_ITS ---
STUDY: X-RAY - LEFT HAND REASON FOR EXAM: Female, 44 years old. Pain burning at the wrist and may be alcohol and for a week. Burning sensation beginning yesterday.. TECHNIQUE: 3 view(s) of the hand. COMPARISON: None. FINDINGS: Normal radiocarpal articulation. Normal distal radioulnar joint. Normal visualized carpal bones. Normal carpal articulations Normal carpometacarpal articulation of the thumb. Normal second through fifth carpometacarpal joints. Normal metacarpi. Normal metacarpophalangeal joint of the thumb. Normal interphalangeal joint of the thumb. Normal proximal and distal phalanges of the thumb. Normal metacarpophalangeal joints of the second through fifth fingers. Normal proximal and distal interphalangeal joints of the second through fifth fingers. Normal phalanges of the second through fifth fingers. The soft tissue structures are unremarkable. RAD/Hand Min 3 Views IMPRESSION: No acute fracture or dislocation. Electronically Signed: Jermaine Ivy DO at 21:26 EDT Tel [phone], Service support ,
[2020-10-19] MEDS: traMADol 50 MG Tablet PO (21:06)
[2020-10-19] MEDS: Triamcinolone Acetonide 40 MG/ML Vial IM (21:06)
--- NOTE | 2020-10-19 21:06 | ED.DEP ---
ED Disposition - Plan for ED Patient: Instructions: ED Carpal Tunnel Syndrome Prescriptions: traMADol [Ultram] 50 mg PO Q4H PRN PRN 3 Days #20 tablet PRN Reason: Pain Prescription Printed Referrals: Kim Manzo MD [Primary Care Provider] -
--- NOTE | 2020-10-19 21:29 | ED.VISSUMM ---
- ER Visit Summary Date of Service: 10/19/20 Chief Complaint: Left hand pain and swelling History of Present Illness: The patient is a 44 F presenting with left hand pain and swelling which has been ongoing for the past 3 weeks. Patient denies injury. She has been seen by her primary care physician. She had x-rays which were negative per patient. She complains of persistent pain. She has a remote history of IV drug use but has not used in 6 years. She denies fever. Denies other complaints. Physical Examination: Vitals are stable. Patient is afebrile. Alert no acute distress. HEENT exam is unremarkable. Neck is supple. Lungs are clear and equal bilaterally. Heart is regular rate and rhythm. Extremities mild diffuse swelling left hand. No erythema or warmth. Normal cap refill. Normal pulses. Skin is warm and dry. No focal neurologic deficit. Remainder of exam is unremarkable. Emergency Department Course and Treatment: X-ray left hand and wrist shows no acute fracture or dislocation. Velcro wrist splint was applied. She was given Kenalog IM. She is given prescription for tramadol. She is advised to follow-up with her primary care physician or orthopedics. Venous Doppler not available at this time of day, she is given an order for venous Doppler of upper extremity. Advised return to the ED for worsening complaints. Disposition: Discharge home Impression: Left hand pain and swelling This note was generated with [employer] dictation software. It may contain incorrect words, spelling, and punctuation that were not noted in review of the chart prior to signing ED Disposition - Plan for ED Patient: Instructions: ED Carpal Tunnel Syndrome Prescriptions: traMADol [Ultram] 50 mg PO Q4H PRN PRN 3 Days #20 tablet PRN Reason: Pain Prescription Printed Referrals: Jose Martin Evans DO [STAFF PHYSICIAN] - Kim Manzo MD [Primary Care Provider] -
--- NOTE | 2020-10-19 21:40 | ED.DEP ---
ED Disposition - Plan for ED Patient: Instructions: ED Carpal Tunnel Syndrome Prescriptions: traMADol [Ultram] 50 mg PO Q4H PRN PRN 3 Days #20 tablet PRN Reason: Pain Prescription Printed Referrals: Kim Manzo MD [Primary Care Provider] - Jose Martin Evans DO [STAFF PHYSICIAN] -
[2020-10-19 22:15] VITALS: BP 110/78; PULSE 72; RESP 16; O2SAT 93
== END 2020-10-19 22:16 | disposition home or self-care (01) ==
PROVIDERS: Emergency Provider Emergency Medicine; PCP Internal Medicine
DX: M79.642 Pain in left hand (principal); M79.89 Other specified soft tissue disorders; J45.909 Unspecified asthma, uncomplicated; M79.7 Fibromyalgia; F17.290 Nicotine dependence, other tobacco product, uncomplicated
CPT/HCPCS: 73110; 73130; 96372; 99283

== ENCOUNTER → 2020-10-20 14:29 | Outpatient (CLI) | payer MEDICARE, MEDICAID, SELFPAY ==
[2020-10-19 20:32] VITALS: BMI 36.6
--- NOTE | 2020-10-20 14:34 | VDUE_ITS ---
Reason For Study: Pain Left Proximal Left jugular vein is spontaneous, widely patent, phasic, with no intraluminal echogenicity noted. Left subclavian vein is spontaneous, widely patent, phasic, with no intraluminal echogenicity noted. Left Arm Left axillary vein is spontaneous, patent, phasic, competent, compressible and demonstrates augmentation. Left brachial vein is compressible. Left cephalic vein is compressible. Left basilic vein is compressible. Left Lower Arm Left radial vein is compressible. Left ulnar vein is compressible. Patient Safety Prelim to zakia. Pt seen in ED 10/19/2020. Interpretation Summary No evidence for acute deep venous thrombosis[left] upper extremity with patent and compressible cephalic and basilic veins. Ordering Physician: Jacquelyn Villagomez Referring Physician: Kim Manzo M.D. Performed By: Maria Luisa Alejandra RVT ?
== END ==
PROVIDERS: PCP Internal Medicine; Referring Provider Emergency Medicine; Visit Provider Emergency Medicine
DX: M79.642 Pain in left hand (principal)
CPT/HCPCS: 93971

== ENCOUNTER 2020-10-25 15:10 | Emergency (ER) | payer MEDICARE, MEDICAID, SELFPAY ==
[2020-10-25 15:11] VITALS: BP 158/102; PULSE 95; RESP 16; TEMP 36.2; O2SAT 96; BMI 36.6
--- NOTE | 2020-10-25 15:45 | ED.RN ---
this nurse present while dr pickard discussed with pt that he is not going to perscribe controled pain meds. in ed. recommended to follow up with pcp for this chronic pain. dr states pcp wont do anything to help. dr pickard recommended orthopedic dr as a next step. pt resistant of suggestions or recommendations. wants something for the pain. pt threatened to cut her arm off and then come back so that she can get meds for the pain. reinforned what he said and then exited room. pt started wailing and screaming at staff. became more esculated to the point she started threatening the go shoot up heroin. then became physical ran to computer and knocked it all over screaming/cursing and yelling. threatened to cut this nurse arm off so i can see how it feels. security called. pt escorted out. pt was swinging and kicking whatever she could on the way out. securiy had to direct and pt throwing her weight to the floo to resist security. a the exit pt began kicking the ambulance that was in the entrance ot the ed. [facility] arrived and took over.
--- NOTE | 2020-10-25 15:48 | ED.VISSUMM ---
- ER Visit Summary Date of Service: 10/25/20 Chief Complaint: Left wrist and hand pain History of Present Illness: The patient is a [address] Manzo. She reports that she has left wrist and hand pain that began 2 weeks ago. It is a burning pain is 10 of 10 in severity. She denies any trauma. No fall, MVA, or change in activity. States the pain is 10 out of 10 in severity currently and at worst. Is worsened by cold. It is unrelieved by her tramadol and Suboxone. Patient reports she has had x-rays of this twice. Physical Examination: Vitals: Stable. Afebrile. General: Well-nourished and well-developed. Head: Normocephalic atraumatic. Neck: Supple, no lymphadenopathy. No JVD. Nontender. Cardiovascular: Regular rate and rhythm. No murmurs. Respiratory: No respiratory distress. Clear to auscultation bilaterally. Abdominal: Soft, nontender, nondistended, normal bowel sounds. No guarding, rebound, or peritoneal signs. Back: Nontender. Extremities: Severe tenderness palpation is diffuse from the left wrist through the entire hand. There is a 2+ radial pulse. There is no focal swelling or discoloration. She reports decreased sensation to light touch. However, she has full range of motion without any difficulty.. Skin: Normal color, no rash. Neurologic: Alert and oriented ?3. Cranial nerves II through XII are intact. Normal strength and sensation. Psych: Normal affect. Emergency Department Course and Treatment: Patient is histrionic and screaming in triage and also in her room. I had a prolonged discussion with her that she is on Suboxone and will not receive opiate-based medications in the emergency department. I wrote for dorsal of Toradol IM. The patient became enraged and was screaming and yelling. She was being inappropriate with nurses. She had no difficulty walking out and punching multiple things with that hand on her way out. Treatment Plan: I did discuss with patient prior to this that she is on Suboxone and opiate-based medications are not warranted. She needs to see her primary care physician to see if she would be willing to give her opiate-based medications. She states that she has seen her already and that she will not and told her to follow-up with orthopedics. The patient has not seen orthopedics. She had x-rays earlier this month here and was referred to Dr. Evans. She is instructed to follow with him as soon as possible. Given the patient's behavior here I did contact case management and have asked them to assess her for a care plan. Disposition: To home in improved and stable condition. Impression: 1. Left hand/wrist pain. 2. Opiate seeking behavior on Suboxone. This note was generated with [employer] dictation software. It may contain incorrect words, spelling, and punctuation that were not noted in review of the chart prior to signing ED Disposition - Plan for ED Patient: Disposition: Home or Assisted Living Instructions: ED Paraesthesias Referrals: Jose Martin Evans DO [STAFF PHYSICIAN] - As soon as possible Kim Manzo MD [Primary Care Provider] - As soon as possible
--- NOTE | 2020-10-25 16:58 | CM.ED ---
SOCIAL WORK Dr. Mitchell requesting ED Care Plan for patient. Olga Diaz, ENGINEER PROCESS, FREIGHT REPRESENTATIVE
--- NOTE | 2020-11-04 16:59 | CM.ED ---
Social Work ED Care Plan reviewed and approved by Dr. Mitchell ED Care Plan entered. Resources compiled and mailed to patient. Telephone call to patient, patient updated on ED Care Plan. Patient denies any needs or concerns and states I only come there when I need to. Social work to continue to follow. Chaim Devi MSW, ALFREDO-S
== END 2020-10-25 15:45 | disposition home or self-care (01) ==
PROVIDERS: Emergency Provider Emergency Medicine; PCP Internal Medicine
DX: M79.642 Pain in left hand (principal); M25.532 Pain in left wrist; F17.200 Nicotine dependence, unspecified, uncomplicated; Z76.5 Malingerer [conscious simulation]
CPT/HCPCS: 99281